=== PATIENT | male | born 1985 ===

== ENCOUNTER 2018-11-07 09:02 | Emergency (ER) | payer SELFPAY ==
[2018-11-07 09:05] VITALS: BP 132/89
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
[2018-11-07] MEDS ORDERED: IBUPROFEN PO ONE (10:50)
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
== END 2018-11-07 11:28 | disposition home or self-care (01) ==
LOC: ED 09:02
DX: S93.402A Sprain of unspecified ligament of left ankle, initial encounter (principal); S30.1XXA Contusion of abdominal wall, initial encounter; F17.200 Nicotine dependence, unspecified, uncomplicated; V19.9XXA Pedal cyclist (driver) (passenger) injured in unspecified traffic accident, initial encounter; Y93.89 Activity, other specified; Y92.410 Unspecified street and highway as the place of occurrence of the external cause; Y99.8 Other external cause status